=== PATIENT | female | born 1995 | race African-American/Black ===

== ENCOUNTER 2016-09-27 09:55 | Observation (INO) | payer OTHER ==
[2016-09-27 09:58] VITALS: BMI 41.5
--- NOTE | 2016-09-27 10:01 | PDOC ---
History of Present Illness - General Chief Complaint: Pain Stated Complaint: RIGHT ABD PAIN Time Seen by Provider: 09/27/16 10:01 History Source: Patient, Old Records Exam Limitations: No Limitations - History of Present Illness Initial Comments: 09/27/16 10:13 21-year-old female with no significant past medical history presents the emergency Department with complaints of epigastric and right upper quadrant pain since this morning. The pain is described as sharp and burning. She had multiple episodes of nonbloody nonbilious vomiting this morning. The patient has had a similar pain in the past several years ago. She denies fevers or chills, diarrhea. She denies complaints. The patient took an antacid for the pain with no significant relief. Past History - Past Medical History Allergies/Adverse Reactions: Allergies Allergy/AdvReac Type Severity Reaction Status Date / Time No Known Allergies Allergy Verified 09/27/16 09:56 Home Medications: Ambulatory Orders NK [No Known Home Medication] 09/27/16 Other medical history: DENIES - Psycho/Social/Smoking Cessation Hx Anxiety: No Suicidal Ideation: No Smoking History: Current some day smoker Have you smoked in the past 12 months: Yes Information on smoking cessation initiated: Yes 'Breaking Loose' booklet given: 09/27/16 Hx Alcohol Use: (occasional) Substance Use Type: Marijuana Review of Systems - Review of Systems Able to Perform ROS?: Yes Is the patient limited Colombian proficient: No Constitutional: Yes: See HPI HEENTM: No: Symptoms Reported Respiratory: No: Symptoms reported Cardiac (ROS): No: Symptoms Reported ABD/GI: Yes: See HPI : No: Symptoms Reported Musculoskeletal: No: Symptoms Reported Integumentary: No: Symptoms Reported Neurological: No: Symptoms reported Psychiatric: No: Depression *Physical Exam - Vital Signs Last Vital Signs Temp Pulse Resp BP Pulse Ox 98.1 F 69 20 152/90 100 09/27/16 09:55 09/27/16 09:55 09/27/16 09:55 09/27/16 09:55 09/27/16 09:55 - Physical Exam Comments: 09/27/16 10:15 GENERAL: Well developed, well nourished. Awake and alert. No acute distress. HEENT: Normocephalic, atraumatic. PERRLA, EOMI. No conjunctival pallor. Sclera are non- icteric. Moist mucous membranes. Oropharynx is clear. NECK: Supple. Full ROM. No JVD. No lymphadenopathy. CARDIOVASCULAR: Regular rate and rhythm. No murmurs, rubs, or gallops. Distal pulses are 2+ and symmetric. PULMONARY: No evidence of respiratory distress. Lungs clear to auscultation bilaterally. No wheezing, rales or rhonchi. ABDOMINAL: Soft. Obese abdomen with tenderness in the epigastrium and bilateral upper quadrants. There is no Walker's sign. Non-distended. No rebound or guarding. No organomegaly. Normoactive bowel sounds. MUSCULOSKELETAL Normal range of motion at all joints. No bony deformities or tenderness. No CVA tenderness. EXTREMITIES: No cyanosis. No clubbing. No edema. No calf tenderness. SKIN: Warm and dry. Normal capillary refill. No rashes. No jaundice. NEUROLOGICAL: Alert, awake, appropriate. Cranial nerves 2-12 intact. Grossly non-focal exam. PSYCHIATRIC: Cooperative. Good eye contact. Appropriate mood and affect. ED Treatment Course - LABORATORY CBC & Chemistry Diagram: 09/27/16 12:32 09/27/16 10:17 Medical Decision Making - Medical Decision Making 09/27/16 10:15 21-year-old female with epigastric and right upper quadrant pain as well as nausea and vomiting this morning. Differential diagnosis includes but is not limited to: Gallbladder disease (cholecystitis versus Citlalli lithiasis), pancreatitis, GERD, gastritis, electrolyte abnormality, dehydration, toxic/ metabolic derangement, . Plan: 1. Labs 2. IV fluids for hydration 3. Antiemetics 4. Abdominal ultrasound 5. Urine analysis and urine 6. Observe and reevaluate 09/27/16 13:17 Addendum: I have re-evaluated the patient at this time. She is completley pain free and is feeling well. Her abdomen is soft and non-tender and there is still no Walker's sign. Her labs were reviewed and are noted in the EMR. The WBC is elevated at 18k. Abdominal ultrasound shows a large gall stone with extensive shadowing but no ductal dilatation. Will continue to hydrate and will repeat the CBC. 09/27/16 13:50 Addendum: The WBC remains elevated. Will admit to observation for IV abx, antibiotics and general surgery consult as well as repeat physical examination. Blood cultures and lactate have been ordered. *DC/Admit/Observation/Transfer Diagnosis at time of Disposition: Epigastric pain, Cholelithiasis, Biliary colic - Discharge Dispostion Condition at time of disposition: Stable Admit: Yes
[2016-09-27] MEDS ORDERED: ONDANSETRON 4 MG/2 ML VIAL IVPUSH ONE (10:12)
[2016-09-27] MEDS ORDERED: SODIUM CHLORIDE 1,000 ML IV STA ×2 (10:12→11:49)
[2016-09-27] MEDS ORDERED: ONDANSETRON 4 MG/2 ML VIAL ONE (10:25)
[2016-09-27 10:43] LABS: PH,URINE >= 9.0 (4.5-8); URINE APPEARANCE Clear; URINE BILIRUBIN Negative (NEGATIVE); URINE BLOOD Negative (NEGATIVE); URINE GLUCOSE (UA) Negative (NEGATIVE); URINE KETONE Trace (NEGATIVE); URINE LEUK ESTERASE Negative (NEGATIVE); URINE NITRITE Negative (NEGATIVE); URINE UROBILINOGEN 1.0 E.U/dl (0.2-1.0)
[2016-09-27 10:50] LABS: URINE COLOR YELLOW; URINE PROTEIN 2+ (NEGATIVE)
[2016-09-27 10:54] LABS: BASOPHIL 0.3 % (0-2.0); EOSINOPHIL 0.2 % (0-4.5); MCH 24.8 pg (25.7-33.7); MCHC 32.5 g/dl (32.0-36.0); MEAN CELL VOLUME 76.1 fl (80-96); MEAN PLT VOLUME 9.1 fl (7.5-11.1); NEUTROPHILS 87.8 % (42.8-82.8); PLATELET COUNT 321 K/MM3 (134-434); RDW 15.2 % (11.6-15.6); WHITE BLOOD COUNT 18.9 K/mm3 (4.0-10.8)
[2016-09-27 11:00] LABS: ALBUMIN 3.7 g/dl (3.5-5.0); ALK PHOS 81 U/L (32-92); ANION GAP 8 (8-16); BILIRUBIN,TOTAL 0.3 mg/dl (0.2-1.0); CALCIUM 9.1 mg/dl (8.4-10.2); CO2 25 mmol/L (22-28); CREATININE 0.9 mg/dl (0.6-1.3); GLUCOSE,RANDOM 143 mg/dl (74-106); MAGNESIUM 1.5 mg/dL (1.8-2.4); PHOSPHOROUS 2.3 mg/dl (2.5-4.6); SGOT/AST 15 U/L (10-42); SGPT/ALT 13 U/L (10-40); TOT PROT 6.9 g/dl (6.4-8.3)
[2016-09-27 13:17] LABS: MCH 24.5 pg (25.7-33.7); MCHC 32.2 g/dl (32.0-36.0); MEAN CELL VOLUME 76.3 fl (80-96); MEAN PLT VOLUME 8.7 fl (7.5-11.1); PLATELET COUNT 315 K/MM3 (134-434); RDW 14.9 % (11.6-15.6); WHITE BLOOD COUNT 19.3 K/mm3 (4.0-10.8)
[2016-09-27 13:28] LABS: URINE RBC 0-3 /hpf (0-3)
[2016-09-27 13:29] LABS: URINE BACTERIA FEW /hpf (NEGATIVE); URINE WBC 0-3 (3-5)
[2016-09-27] MEDS ORDERED: CEFTRIAXONE 1 GM in DEXTROSE 5%-WATER - 50 ML IVPB ONE (13:48)
[2016-09-27] MEDS ORDERED: ACETAMINOPHEN 325 MG TABLET (FP) PO PRN (13:54)
[2016-09-27] MEDS ORDERED: morphine CARPU-JECT 2 MG/1 ML DISP.SYRIN IVPUSH PRN (13:54)
[2016-09-27] MEDS ORDERED: ONDANSETRON 4 MG/2 ML VIAL IVPB PRN (13:54)
[2016-09-27] MEDS ORDERED: cefTRIAXone SODIUM 1 GM VIAL ONE (13:59)
[2016-09-27] MEDS ORDERED: SODIUM CHLORIDE 1,000 ML IV SCH (14:00)
--- NOTE | 2016-09-27 17:52 | EKG ---
Test Reason : Blood Pressure : / mmHG Vent. Rate : 082 BPM Atrial Rate : 082 BPM P-R Int : 152 ms QRS Dur : 082 ms QT Int : 380 ms P-R-T Axes : 052 033 012 degrees QTc Int : 443 ms NORMAL SINUS RHYTHM NONSPECIFIC T WAVE ABNORMALITY NO PREVIOUS ECGS AVAILABLE Confirmed by MD BEGUM MARJORY ([id number]) on 09/27/2016 5:51:50 PM Referred By: JESSICA FARLEY Confirmed By:DARIEN BEGUM MD
--- NOTE | 2016-09-27 22:33 | PN ---
Progress Note (short form) - Note Progress Note: surgery pt seen and examined in ER at 5:30. full consult dictated. 21 morbidly obese female with history of fatty food intolerance who developed ruq abd pain that resolved after eating a hamburgey. u/s shows cholelithiasis with fatty liver and ct shows thickened gb with edema and large stone. wbc 18. on exam abd is soft, nt, nd, obese Plan- biliary colic with episode resolved on top of chronic cholecystitis. would expect wbc to improve in am. Pt should consider elective cholecystectomy if labs better in am. otherwise would consider inpatient surgery
--- NOTE | 2016-09-27 23:21 | HP ---
CHIEF COMPLAINT: Abdominal pain PCP: HISTORY OF PRESENT ILLNESS: This is a 21 year old female with no significant past medical history who presented to the ED with epigastric and RUQ pain and vomiting today. Pt reports feeling much better at time of exam and denies further abdominal pain or vomiting. ER course was notable for: (1) US with gallstone (2) CT with gallstone and thickened GB wall Recent Travel: pt denies PAST MEDICAL HISTORY: pt denies PAST SURGICAL HISTORY: pt denies Social History: Smoking: pt denies Alcohol: on weekends, socially, 2 drinks Drugs: pt denies Family History: mother alive DM, HTN father alive, DM 3 brothers alive and well maternal grandfather , throat CA maternal grandmother , CA, unknown type, also with DM Allergies No Known Allergies Allergy (Verified 09/27/16 09:56) HOME MEDICATIONS: 3 Medication Instructions Recorded NK [No Known Home Medication] 09/27/16 REVIEW OF SYSTEMS CONSTITUTIONAL: Absent: fever, chills, diaphoresis, generalized weakness, malaise, loss of appetite, weight change HEENT: Absent: rhinorrhea, nasal congestion, throat pain, throat swelling, difficulty swallowing, mouth swelling, ear pain, eye pain, visual changes CARDIOVASCULAR: Absent: chest pain, syncope, palpitations, irregular heart rate, lightheadedness , peripheral edema RESPIRATORY: Absent: cough, shortness of breath, dyspnea with exertion, orthopnea, wheezing, stridor, hemoptysis GASTROINTESTINAL: abdominal pain, nausea, vomiting Absent: abdominal distension, diarrhea, constipation, melena, hematochezia GENITOURINARY: Absent: dysuria, frequency, urgency, hesitancy, hematuria, flank pain, genital pain MUSCULOSKELETAL: Absent: myalgia, arthralgia, joint swelling, back pain, neck pain SKIN: Absent: rash, itching, pallor HEMATOLOGIC/IMMUNOLOGIC: Absent: easy bleeding, easy bruising, lymphadenopathy, frequent infections ENDOCRINE: Absent: unexplained weight gain, unexplained weight loss, heat intolerance, cold intolerance NEUROLOGIC: Absent: headache, focal weakness or paresthesias, dizziness, unsteady gait, seizure, mental status changes, bladder or bowel incontinence PSYCHIATRIC: Absent: anxiety, depression, suicidal or homicidal ideation, hallucinations. PHYSICAL EXAMINATION Vital Signs - 24 hr 3 09/27/16 09/27/16 19:00 20:11 Temperature 97.6 F 98.3 F Pulse Rate 74 Pulse Rate [ 78 Left Apical] Respiratory 16 18 Rate Blood Pressure 143/77 Blood Pressure 132/79 [Left Arm] O2 Sat by Pulse 98 100 Oximetry (%) GENERAL: Awake, alert, and fully oriented, in no acute distress. HEAD: Normal with no signs of trauma. EYES: Pupils equal, round and reactive to light, extraocular movements intact, sclera anicteric, conjunctiva clear. No lid lag. EARS, NOSE, THROAT: Ears normal, nares patent, oropharynx clear without exudates. Moist mucous membranes. NECK: Normal range of motion, supple without lymphadenopathy, JVD, or masses. LUNGS: Breath sounds equal, clear to auscultation bilaterally. No wheezes, and no crackles. No accessory muscle use. HEART: Regular rate and rhythm, normal S1 and S2 without murmur, rub or gallop. ABDOMEN: Soft, nontender, not distended, normoactive bowel sounds, no guarding, no rebound, no masses. No hepatomegaly or splenomegaly. MUSCULOSKELETAL: Normal range of motion at all joints. No bony deformities or tenderness. No CVA tenderness. Walker's sign absent UPPER EXTREMITIES: 2+ pulses, warm, well-perfused. No cyanosis. No clubbing. No peripheral edema. LOWER EXTREMITIES: 2+ pulses, warm, well-perfused. No calf tenderness. No peripheral edema. NEUROLOGICAL: Cranial nerves II-XII intact. Normal speech. Normal gait. PSYCHIATRIC: Cooperative. Good eye contact. Appropriate mood and affect. SKIN: Warm, dry, normal turgor, no rashes or lesions noted, normal capillary refill. Laboratory Results - last 24 hr 3 09/27/16 09/27/16 09/27/16 10:07 10:17 10:17 WBC 18.9 H RBC 5.42 H Hgb 13.4 Hct 41.2 MCV 76.1 L MCHC 32.5 RDW 15.2 Plt Count 321 MPV 9.1 Neutrophils % 87.8 H Lymphocytes % 9.1 Monocytes % 2.6 L Eosinophils % 0.2 Basophils % 0.3 Band Neutrophils Sodium 138 Potassium 3.9 Chloride 105 Carbon Dioxide 25 Anion Gap 8 BUN 9 Creatinine 0.9 Creat Clearance w eGFR > 60 Random Glucose 143 H Lactic Acid Calcium 9.1 Phosphorus 2.3 L Magnesium 1.5 L Total Bilirubin 0.3 AST 15 ALT 13 Alkaline Phosphatase 81 Total Protein 6.9 Albumin 3.7 Lipase 24 Urine Color Yellow Urine Appearance Clear Urine pH >= 9.0 H Ur Specific [place] 1.020 Urine Protein 2+ H Urine Glucose (UA) Negative Urine Ketones Trace Urine Blood Negative Urine Nitrite Negative Urine Bilirubin Negative Urine Urobilinogen 1.0 e.u/dl Ur Leukocyte Esterase Negative Urine RBC 0-3 Urine WBC 0-3 Ur Epithelial Cells Few Urine Bacteria Few Hyaline Casts 3-5 Urine HCG, Qual Negative 3 09/27/16 09/27/16 12:32 13:45 WBC 19.3 H RBC 5.33 H Hgb 13.1 Hct 40.6 MCV 76.3 L MCHC 32.2 RDW 14.9 Plt Count 315 MPV 8.7 Neutrophils % 90.0 H Lymphocytes % 4.0 L D Monocytes % 4.0 Eosinophils % Basophils % Band Neutrophils 2.0 Sodium Potassium Chloride Carbon Dioxide Anion Gap BUN Creatinine Creat Clearance w eGFR Random Glucose Lactic Acid 1.0 Calcium Phosphorus Magnesium Total Bilirubin AST ALT Alkaline Phosphatase Total Protein Albumin Lipase Urine Color Urine Appearance Urine pH Ur Specific [place] Urine Protein Urine Glucose (UA) Urine Ketones Urine Blood Urine Nitrite Urine Bilirubin Urine Urobilinogen Ur Leukocyte Esterase Urine RBC Urine WBC Ur Epithelial Cells Urine Bacteria Hyaline Casts Urine HCG, Qual CT/ABDOMEN PELVIS CT WITH CONTR ADDENDUM ADDENDUM #1 Addendum: Examination was not completed by the technologist for dictation at the time it was performed. ORIGINAL REPORT Upper abdominal pain with elevated white blood cells. CT scan of the abdomen and pelvis following oral and intravenous contrast. Coronal and sagittal reformatted images were obtained 100 cc of Omnipaque 350 was intravenously injected Comparison: Prior upper abdomen ultrasound dated 09/27/2016 Visualized lung base appears unremarkable and the heart is within normal limits in size. Evaluation of the liver, spleen, pancreas, both adrenal glands and both kidneys appear unremarkable. Gallbladder is adequately distended with a large gallstone again seen. There is suggestion of of thickening of the gallbladder wall. No gross pericholecystic free fluid is seen. There is no evidence of small bowel obstruction. Normal-appearing terminal ileum and appendix. Normal stool burden in the colon without wall thickening. Possible few diverticula in the splenic flexure without evidence of acute diverticulitis. Moderate distention of the urinary bladder without wall thickening. Normal size uterus. Perirectal and pericecal fat is clear. Visualized osseous structures appear intact Impression: Large gallstone again seen measuring approximately 5 cm with suggestion of thickening of the gallbladder wall mainly at the fundus. However, there was no gross gallbladder wall thickening on prior ultrasound done on the same date. There is no gross pericholecystic free fluid. Correlate clinically to determine further evaluation. RAD/CHEST PA LAT CHEST 2 VIEWS. History. Epigastric pain. Comparison study: None. Findings. The trachea is normal in size and is not deviated. Unremarkable contour of the cardiomediastinal silhouette. The lungs are well aerated. No evidence of airspace opacities, atelectasis, pleural effusion, or pneumothorax. No bulky hilar adenopathy is noted. Intact visualized osseous structures Impression. No evidence of active pulmonary disease. US/ABDOMEN US -LIMITED HISTORY PROVIDED: Right upper quadrant pain. Real time examination of the abdomen demonstrates the following: Within the gallbladder, there is a large calculus which measures approximately 6.7 x 3.3 x 3.8 cm. The gallbladder lumen could not be visualized due to extensive shadowing from the large stone. There is no evidence of intra or extrahepatic biliary duct dilatation. The liver is normal in size. It is hyperechoic in texture consistent with diffuse fatty infiltration. No discrete intrahepatic masses are identified. The pancreas is normal in size and texture with no pancreatic masses identified. The tail of the pancreas was not well visualized due to overlying bowel gas. There is no evidence of hydronephrosis or acute abnormalities of the right kidney. IMPRESSION: Cholelithiasis and probable mild diffuse fatty infiltration of the liver. ASSESSMENT/PLAN: 21yF with no PMH presented to the ED with abdominal pain. She is being admitted for further observation. Abdominal pain with leukocytosis - us with gallstone - CT with gallstone, suggestion of thickening of GB wall - will repeat WBC in am and if improved start diet and if pt feeling well and tolerating diet, dc home with outpatient f/u for elective cholecystectomy - surgical consult appreciated. DVT PPX - chemoprophylaxis deferred as expected LOS <48 and pt fully ambulatory FEN - NS @ 125cc/hr - repeat BMP in am - NPO for now until repeat CBC Dispo: Pt currently requires inpatient observation for management of her emergent condition. Visit type - Emergency Visit Emergency Visit: Yes ED Registration Date: 09/27/16 Care time: The patient presented to the Emergency Department on the above date and was hospitalized for further evaluation of their emergent condition. - New Patient This patient is new to me today: Yes Date on this admission: 09/27/16 - Critical Care Critical Care patient: No
[2016-09-28] MEDS ORDERED: MAGNESIUM SULF 50% (8.12 MEQ/2 ML-1 GM VIAL) IVPB ONE (01:51)
[2016-09-28] MEDS ORDERED: MAGNESIUM SULF 50% (8.12 MEQ/2 ML-1 GM VIAL) ONE (01:55)
[2016-09-28 06:23] VITALS: TEMP 98.4
--- NOTE | 2016-09-28 08:16 | CONS ---
DATE OF CONSULTATION: 09/27/2016 REASON FOR CONSULTATION: Acute cholecystitis, cholelithiasis. This is an emergency room consultation. It was requested by the emergency room physician. Patient was seen and examined at 5:30 this afternoon. BRIEF HISTORY: This is a 21-year-old female, morbidly obese, with a long history of fatty food intolerance, presented to [facility] complaining of severe right upper quadrant abdominal pain, nausea, and vomiting that had lasted approximately 6 hours. Since being in the emergency room her pain is resolved. She had an ultrasound done which showed a gallstone without signs of cholecystitis. She was also noted to have fatty liver. Her liver function tests were unremarkable, and her white blood cell count was noted to be elevated at 18. She had a repeat white blood cell count which was essentially the same. She was noted to be afebrile, had vitals that were stable, and request is made by me for a CAT scan. CAT scan of her abdomen and pelvis was done, which has currently not been officially read, but on review there is a large stone within a thickened gallbladder with possible pericholecystic fluid. There is no other obvious pathology noted. Patient was admitted to [facility] for observation, and a surgical consultation was requested. PAST MEDICAL HISTORY: She has no past medical history. PAST SURGICAL HISTORY: Nil. SOCIAL HISTORY: Positive for tobacco. She has been encouraged to quit. ALLERGIES: She has no known drug allergies. MEDICATIONS: She takes no medications. FAMILY HISTORY: Significant for biliary disease. REVIEW OF SYSTEMS: General: Denies fatigue or malaise. Cardiac: Denies chest pain or palpitations. Respiratory: Denies shortness of breath or wheeze. Gastrointestinal: As stated in HPI. Genitourinary: Denies dysuria. Musculoskeletal: Denies joint pain, joint swelling. Psychiatric: Denies anxiety, depression, or hearing voices. PHYSICAL EXAMINATION: General: This is a morbidly obese 21-year-old female in no distress. She is afebrile. HEENT: Head is normocephalic. Her sclerae are anicteric. Neck: Supple. Chest: Clear. Abdomen: Soft. It is obese. There are no surgical scars. She is nontender. Essentially benign exam. Extremities: No edema. LABORATORY: Her white blood cell count was 18 and on repeat was 19. Her chemistries are unremarkable. Her urinalysis is unremarkable. IMAGING: As stated in HPI. ASSESSMENT: A 21-year-old female with approximately 6-7 hours of right upper quadrant pain with nausea and vomiting, with a history of fatty food intolerance. Her symptoms have resolved. Her ultrasound is consistent with cholelithiasis, and her CAT scan shows a likely inflamed gallbladder with a large gallstone within it. I suspect she has biliary colic on top of chronic cholecystitis because she is currently well. At this point I agree with observation. Would repeat laboratories in the morning. I suspect they will be much improved. If they are, patient should be given a low fat diet and should make plans for elective cholecystectomy. If her labs are not better or if she develops new pain, she should consider either inpatient surgical removal of her gallbladder versus continued medical management. Patient is currently nontoxic and appears asymptomatic. DO KATIE ECHOLS/[id number]
[2016-09-28 08:40] LABS: BASOPHIL 1.3 % (0-2.0); EOSINOPHIL 1.6 % (0-4.5); MCH 25.1 pg (25.7-33.7); MCHC 32.7 g/dl (32.0-36.0); MEAN CELL VOLUME 76.9 fl (80-96); MEAN PLT VOLUME 9.3 fl (7.5-11.1); NEUTROPHILS 58.4 % (42.8-82.8); PLATELET COUNT 302 K/MM3 (134-434); RDW 14.9 % (11.6-15.6)
[2016-09-28 09:13] LABS: ALBUMIN 3.1 g/dl (3.5-5.0); ALK PHOS 70 U/L (32-92); ANION GAP 8 (8-16); BILIRUBIN,TOTAL 0.8 mg/dl (0.2-1.0); CALCIUM 8.7 mg/dl (8.4-10.2); CO2 25 mmol/L (22-28); CREATININE 0.9 mg/dl (0.6-1.3); GLUCOSE,RANDOM 94 mg/dl (74-106); SGOT/AST 14 U/L (10-42); SGPT/ALT 11 U/L (10-40); TOT PROT 6.1 g/dl (6.4-8.3)
--- NOTE | 2016-09-28 09:18 | PN ---
Progress Note (short form) - Note Progress Note: surgery wbc down to 14. pt remains pain free and hungry. suspect chronic cholecystitis with biliary colic vs improving acute cholecystitis. pt offered cholecystectomy and declines for personal reasons. (she has training for new job on Saturday) Pt want to be discharged. recommend low fat diet. 1 week augmentin 875 bid. Pt should call my office to be evaluated for cholecystectomy. [phone].
[2016-09-28 09:42] LABS: PHOSPHOROUS 3.7 mg/dl (2.5-4.6)
[2016-09-28] MEDS ORDERED: SODIUM CHLORIDE 1,000 ML IV SCH (09:57)
[2016-09-28] MEDS ORDERED: CEFTRIAXONE 2 GM in DEXTROSE 5%-WATER - 100 ML IVPB SCH (10:00)
--- NOTE | 2016-09-28 10:02 | DS ---
Physical Exam: SUBJECTIVE: Patient seen and examined, patient reports feeling well, denies any abdominal pain or nausea. patient denies OBJECTIVE: Vital Signs Period Temp Pulse Resp BP Sys/Brown Pulse Ox Last 24 Hr 97.6 F-98.4 F 74-82 16-18 132-147/77-79 98-100 PHYSICAL EXAM GENERAL: The patient is awake, alert, and fully oriented, in no acute distress. HEAD: Normal with no signs of trauma. EYES: PERRL, extraocular movements intact, sclera anicteric, conjunctiva clear. ENT: Ears normal, nares patent, oropharynx clear without exudates, moist mucous membranes. NECK: Trachea midline, full range of motion, supple. LUNGS: Breath sounds equal, clear to auscultation bilaterally, no wheezes, no crackles, no accessory muscle use. HEART: Regular rate and rhythm, S1, S2 without murmur, rub or gallop. ABDOMEN: Soft, nontender, nondistended, normoactive bowel sounds, no guarding, no rebound, no hepatosplenomegaly, no masses. EXTREMITIES: 2+ pulses, warm, well-perfused, no edema. NEUROLOGICAL: Cranial nerves II through XII grossly intact. Normal speech, gait not observed. PSYCH: Normal mood, normal affect. SKIN: Warm, dry, normal turgor, no rashes or lesions noted. LABS Laboratory Results - last 24 hr 09/28/16 09/28/16 09/28/16 07:43 07:43 07:43 WBC 14.0 H RBC 5.06 Hgb 12.7 Hct 38.9 MCV 76.9 L MCHC 32.7 RDW 14.9 Plt Count 302 MPV 9.3 Neutrophils % 58.4 D Lymphocytes % 32.9 D Monocytes % 5.8 Eosinophils % 1.6 D Basophils % 1.3 D Sodium 140 Potassium 3.8 Chloride 107 Carbon Dioxide 25 Anion Gap 8 BUN 5 L D Creatinine 0.9 Creat Clearance w eGFR > 60 Random Glucose 94 D Calcium 8.7 Phosphorus 3.7 D Magnesium 2.0 D Total Bilirubin 0.8 D AST 14 ALT 11 Alkaline Phosphatase 70 Total Protein 6.1 L Albumin 3.1 L HOSPITAL COURSE: Date of Admission:09/27/16 Date of Discharge: 09/28/16 Discharge Summary Reason For Visit: CHOLELITHIASIS, BILIARY COLIC Current Active Problems Biliary colic (Acute) Cholelithiasis (Acute) Epigastric pain (Acute) Condition: Stable - Home Medications Comprehensive Discharge Medication List: Ambulatory Orders NK [No Known Home Medication] 09/27/16
[2016-09-28] MEDS ORDERED: METRONIDAZOLE 500 MG PREMIXED 100 ML IVPB SCH (10:15)
[2016-09-28] MEDS ORDERED: RANITIDINE HCL 150 MG TABLET (FP) PO SCH (10:30)
[2016-09-28] MEDS ORDERED: CEFTRIAXONE 100 ML IVPB SCH (10:30)
[2016-09-28 14:02] VITALS: BP 141/81; PULSE 68
== END 2016-09-28 16:15 | disposition home or self-care (01) ==
LOC: FER 09:55 → FM/S 16:54 → UNDOADMOB 16:54
PROVIDERS: ADMIT Internal Medicine; ATTEND Nurse Practitioner Family
PROC: 3E03329 Introduction of Other Anti-infective into Peripheral Vein, Percutaneous Approach (ICD-10-PCS; principal; 2016-09-27)
PROC: 3E033NZ Introduction of Analgesics, Hypnotics, Sedatives into Peripheral Vein, Percutaneous Approach (ICD-10-PCS; 2016-09-27)
PROC: 3E0337Z Introduction of Electrolytic and Water Balance Substance into Peripheral Vein, Percutaneous Approach (ICD-10-PCS; 2016-09-27)
DX: K80.20 Calculus of gallbladder without cholecystitis without obstruction (principal); K80.50 Calculus of bile duct without cholangitis or cholecystitis without obstruction; R10.13 Epigastric pain; E66.01 Morbid (severe) obesity due to excess calories; Z68.41 Body mass index [BMI] 40.0-44.9, adult; K76.0 Fatty (change of) liver, not elsewhere classified; D72.829 Elevated white blood cell count, unspecified
CPT/HCPCS: 36415; 71020-TC; 74177-TC; 76705-TC; 80053; 81003; 81015; 83605; 83690; 83735; 84100; 84703; 85025; 87040; 93005; 99285-25; C1887; G0378

== ENCOUNTER 2017-01-03 17:57 | Emergency (ER) | payer OTHER ==
[2017-01-03 18:15] VITALS: BP 153/94; PULSE 92; TEMP 98.3; BMI 41.5
--- NOTE | 2017-01-03 20:02 | PDOC ---
History of Present Illness - General Chief Complaint: Ear Problem Stated Complaint: EAR PROBLEM Time Seen by Provider: 01/03/17 19:17 Past History - Past Medical History Allergies/Adverse Reactions: Allergies Allergy/AdvReac Type Severity Reaction Status Date / Time No Known Allergies Allergy Verified 09/27/16 09:56 Home Medications: Ambulatory Orders Ofloxacin Otic [Floxin Otic -] 10 drop OT DAILY #140 drops 01/03/17 Other medical history: DENIES - Immunization History Immunization Up to Date: Yes - Psycho/Social/Smoking Cessation Hx Anxiety: No Suicidal Ideation: No Smoking History: Never smoked Have you smoked in the past 12 months: Yes Information on smoking cessation initiated: No 'Breaking Loose' booklet given: 09/27/16 Hx Alcohol Use: No Drug/Substance Use Hx: No Substance Use Type: Marijuana *Physical Exam - Vital Signs Last Vital Signs Temp Pulse Resp BP Pulse Ox 98.3 F 92 H 16 153/94 100 01/03/17 18:12 01/03/17 18:12 01/03/17 18:12 01/03/17 18:12 01/03/17 18:12 *DC/Admit/Observation/Transfer Diagnosis at time of Disposition: Otitis externa Qualifiers: Otitis externa type: swimmer's ear Chronicity: acute Laterality: bilateral Qualified Code(s): H60.333 - Swimmer's ear, bilateral - Discharge Dispostion Disposition: HOME Condition at time of disposition: Good Admit: No - Referrals Referrals: David Bustamante MD [Staff Physician] - - Patient Instructions Printed Discharge Instructions: DI for Otitis Externa Additional Instructions: You have swimmers ear. Use the drops as prescribed. Place 10 drops in each ear once a day, for one week. Try to keep your ears as dry as possible. After getting out of the shower told your head and pack dry on a towel. Do not use Q- tips. He may take Tylenol or Motrin as needed for pain. If her symptoms do not resolve follow-up with Dr. Bustamante ENT. Return to the emergency department if you have worsening pain, fevers, chills, hearing loss or any changes in your symptoms.
== END 2017-01-03 20:09 | disposition home or self-care (01) ==
LOC: JERFT 17:57
DX: H60.333 Swimmer's ear, bilateral (principal)
CPT/HCPCS: 99281-25

== ENCOUNTER 2022-09-10 08:41 | Day surgery (SDC) | payer OTHER ==
[2022-09-10] MEDS ORDERED: SODIUM CHLORIDE 0.9% 1000 ML INFUS.BAG IV ONE (09:02)
[2022-09-10] MEDS ORDERED: ONDANSETRON 4 MG/2 ML VIAL IVPUSH ONE (09:03)
[2022-09-10] MEDS ORDERED: ONDANSETRON 4 MG/2 ML VIAL ONE (09:11)
[2022-09-10 09:22] LABS: HCG,QUALITATIVE URINE Negative
[2022-09-10 09:31] LABS: HEMATOCRIT 46.8 % (32.4-45.2); HEMOGLOBIN 15.3 G/dL (10.7-15.3); MCH 26.3 pg (25.7-33.7); MCHC 32.8 g/dl (32.0-36.0); MEAN CELL VOLUME 80.1 fl (80-96); MEAN PLT VOLUME 9.4 fl (7.5-11.1); PLATELET COUNT 282.4 10^3/uL (134-434); RBC 5.84 10^6/uL (3.60-5.2); RDW 15.4 % (11.6-15.6); WHITE BLOOD COUNT 16.9 10^3/uL (4.0-10.8)
[2022-09-10 09:44] LABS: CALCIUM 9.5 mg/dl (8.5-10); POTASSIUM 4.4 mmol/L (3.5-5.1)
[2022-09-10 09:49] LABS: ALBUMIN 3.8 g/dl (3.4-5.0); BILIRUBIN,TOTAL 0.7 mg/dl (0.2-1); CREATININE 1.1 mg/dl (0.55-1.3); TOT PROT 7.1 g/dl (6.4-8.2)
[2022-09-10 09:56] LABS: EPITHELIAL CELLS MODERATE /hpf
[2022-09-10] MEDS ORDERED: KETOROLAC TROMETHAMINE 30 MG/1 ML VIAL IVPUSH PRN (12:31)
[2022-09-10] MEDS ORDERED: ACETAMINOPHEN 1000 MG/100 ML BAG IVPB PRN (12:31)
[2022-09-10] MEDS ORDERED: ONDANSETRON 4 MG/2 ML VIAL IVPUSH PRN (12:32)
[2022-09-10] MEDS ORDERED: SODIUM CHLORIDE 1,000 ML IV SCH (12:45)
[2022-09-10] MEDS ORDERED: PIPERACILLIN/TAZOB 3.375 GM 3.375 GM in DEXTROSE 5%-WATER - 50 ML IVPB ONE (12:56)
[2022-09-10] MEDS ORDERED: PIPERACILLIN/TAZOBACTAM 3.375 GM VIAL IVPB ONE (13:00)
[2022-09-10 14:58] VITALS: BMI 42.4
[2022-09-11 08:20] LABS: ALBUMIN 3.3 g/dl (3.4-5.0); BILIRUBIN,TOTAL 0.9 mg/dl (0.2-1); CALCIUM 8.5 mg/dl (8.5-10); CREATININE 0.9 mg/dl (0.55-1.3); MAGNESIUM 1.5 mg/dL (1.8-2.4); PHOSPHOROUS 2.2 mg/dl (2.5-4.9); POTASSIUM 3.9 mmol/L (3.5-5.1); TOT PROT 6.2 g/dl (6.4-8.2)
[2022-09-11 09:43] LABS: EOS % 1.2 % (0-4.5); HEMATOCRIT 41.6 % (32.4-45.2); HEMOGLOBIN 13.8 GM/dL (10.7-15.3); LYMPH % 20.8 % (8-40); MCH 25.8 pg (25.7-33.7); MCHC 33.1 g/dl (32.0-36.0); MEAN PLT VOLUME 9.7 fl (7.5-11.1); MONO % 4.5 % (3.8-10.2); NEUT % 72.5 % (42.8-82.8); PLATELET COUNT 261 10^3/uL (134-434); RBC 5.34 M/mm3 (3.60-5.2); RDW 14.6 % (11.6-15.6); WHITE BLOOD COUNT 14.3 K/mm3 (4.0-10.0)
[2022-09-11] MEDS ORDERED: BUPIVACAINE HCL/PF 0.5% (5MG/ML) 10 ML VIAL ONE ×2 (15:31→16:01)
[2022-09-11] MEDS ORDERED: BUPIVACAINE HCL/PF 0.25% (2.5MG/ML) 10 ML VIAL ONE (15:31)
[2022-09-11] MEDS ORDERED: BUPIVACAINE HCL/PF 2.5 MG/ML - 30 ML VIAL IJ ONE ×2 (16:01→16:35)
[2022-09-11] MEDS ORDERED: ONDANSETRON 4 MG/2 ML VIAL IVPUSH PRN ×2 (16:15→19:36)
[2022-09-11] MEDS ORDERED: PROMETHAZINE HCL 25 MG/1 ML VIAL IVPB PRN (16:15)
[2022-09-11] MEDS ORDERED: LACTATED RINGERS SOLUTION 1,000 ML IV SCH ×2 (16:15→19:36)
[2022-09-11] MEDS ORDERED: PROPOFOL 20 ML ONE ×3 (16:53→18:34)
[2022-09-11] MEDS ORDERED: ROCURONIUM BROMIDE 50 MG/5 ML SYRINGE ONE (16:53)
[2022-09-11] MEDS ORDERED: MIDAZOLAM HCL 2 MG/2 ML SINGLE DOSE VIAL ONE (16:53)
[2022-09-11] MEDS ORDERED: cefOXitin SODIUM 2 GM VIAL (RESTRICTED TO ID) IVPB ONE (16:59)
[2022-09-11] MEDS ORDERED: ACETAMINOPHEN INJECTION 100 ML IVPB ONE (17:05)
[2022-09-11] MEDS ORDERED: SODIUM CHLORIDE 0.9% P/F 10 ML VIAL IJ ONE (17:20)
[2022-09-11] MEDS ORDERED: DEXAMETHASONE SOD PHOSPHATE 4 MG/1 ML VIAL ONE (17:28)
[2022-09-11] MEDS ORDERED: ONDANSETRON 4 MG/2 ML VIAL ONE (17:28)
[2022-09-11] MEDS ORDERED: HEPARIN NA (PORCINE) 5,000 UNITS/ML 1ML VIAL ONE ×2 (17:30)
[2022-09-11] MEDS ORDERED: KETOROLAC TROMETHAMINE 30 MG/1 ML VIAL ONE (17:50)
[2022-09-11] MEDS ORDERED: NEOSTIGMINE METHYLSULFATE 0.5 MG/1 ML - 10 ML MDV ONE (17:51)
[2022-09-11] MEDS ORDERED: GLYCOPYRROLATE 0.2 MG/1 ML VIAL ONE (17:51)
[2022-09-11] MEDS ORDERED: oxyCODONE HCL 5 MG TABLET PO PRN ×3 (19:36→19:45)
[2022-09-11 21:12] VITALS: RESP 18
[2022-09-12] MEDS ORDERED: PIPERACILLIN/TAZOB 4.5 GM 4.5 GM in DEXTROSE 5%-WATER 100 ML IVPB ONE (01:30)
[2022-09-12] MEDS ORDERED: IBUPROFEN 600 MG TABLET (FP) PO PRN (03:00)
[2022-09-12] MEDS: ACETAMINOPHEN 1000 MG/100 ML BAG IVPB SCH ×2 (03:36→09:56)
[2022-09-12 08:46] LABS: ALBUMIN 3.2 g/dl (3.4-5.0); BILIRUBIN,TOTAL 1.5 mg/dl (0.2-1); CALCIUM 8.7 mg/dl (8.5-10); CREATININE 1.1 mg/dl (0.55-1.3); POTASSIUM 4.3 mmol/L (3.5-5.1)
[2022-09-12 09:24] VITALS: BP 139/74; PULSE 78; TEMP 98.3
[2022-09-12] MEDS ORDERED: ENOXAPARIN NA (PORCINE) 40 MG/0.4 ML DISP.SYRIN SQ SCH (10:00)
[2022-09-12 11:22] LABS: BASO % 0.6 % (0-2.0); EOS % 0.1 % (0-4.5); HEMATOCRIT 39.9 % (32.4-45.2); LYMPH % 10.5 % (8-40); MCH 25.6 pg (25.7-33.7); MCHC 32.7 g/dl (32.0-36.0); MEAN CELL VOLUME 78.3 fl (80-96); MEAN PLT VOLUME 9.9 fl (7.5-11.1); MONO % 6.5 % (3.8-10.2); NEUT % 82.3 % (42.8-82.8); PLATELET COUNT 271 10^3/uL (134-434); RDW 15.1 % (11.6-15.6); WHITE BLOOD COUNT 15.1 K/mm3 (4.0-10.0)
== END 2022-09-12 12:58 | disposition home or self-care (01) ==
LOC: FER 08:41 → FASUSAT 12:30 → SUATTDRO 12:30 → UNDOADMIN 12:45 → FM/S 12:45 → FASUSAT 09-12 12:58
PROC: 0FT44ZZ Resection of Gallbladder, Percutaneous Endoscopic Approach (ICD-10-PCS; principal; 2022-09-10)
DX: K80.10 Calculus of gallbladder with chronic cholecystitis without obstruction (principal)
CPT/HCPCS: 0241U-QW; 36415; 76705-TC; 80053; 81003; 81015; 83690; 83735; 84100; 84703; 85025; 85027; 86850; 86900; 86901; 87040; 87086; 88304-TC; 93005; 94760; 99285-25; J1644